=== PATIENT | male | born 1950 | race Caucasian/White ===

== ENCOUNTER → 2024-07-31 11:26 | Outpatient (REF) | payer MEDICARE, SELFPAY | LOC: MRI 3T 11:26 | PROVIDERS: ATTENDING PHYSICIAN Orthopaedic Surgery; FAMILY PHYSICIAN Family Medicine | DX: M25.562 Pain in left knee (principal) | CPT/HCPCS: 73721 ==

== ENCOUNTER → 2024-09-05 13:03 | Outpatient (REF) | payer MEDICARE, SELFPAY | LOC: MRI 3T 13:03 | PROVIDERS: ATTENDING PHYSICIAN Specialist; FAMILY PHYSICIAN Family Medicine | DX: Q61.02 Congenital multiple renal cysts (principal) | CPT/HCPCS: 74183; A9575 ==